=== PATIENT | female | born 1970 | race Caucasian/White ===

== ENCOUNTER 2021-10-23 18:38 | Emergency (ER) | payer OTHER, SELFPAY ==
--- NOTE | 2021-10-23 18:41 | ED.UPPEXIN ---
HPI - Extremity Injury (Upper) General Chief Complaint: Extremity Injury, Upper Stated Complaint: lt shoulder injury Time Seen by Provider: 10/23/21 18:41 Source: patient and RN notes reviewed History of Present Illness HPI narrative: Patient is a 51-year-old female who presents the urgent care with complaints of left shoulder pain after reaching for toilet paper under the cabinet and hearing the shoulder rip . Patient states that she has been taking NSAIDs the pain without much improvement. 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 Patient states that she has noticed increased pain with any type of lifting or repetitive motion. No other acute complaints. No acute distress noted. Patient aware of the plan of care. Some parts of this dictation were generated by voice recognition software and may contain typographical and/or grammatical inaccuracies. Related Data Allergies Allergy/AdvReac Type Severity Reaction Status Date / Time shellfish derived Allergy Unknown VOMITING Unverified 03/23/20 09:27 Clam Allergy Mild Uncoded 03/23/20 09:27 Scallop Allergy Mild Uncoded 03/23/20 09:27 Review of Systems Review of Systems: CONSTITUTIONAL: Denies fever, chills, or sweats. EYES: Denies visual changes, redness, or discharge. ENT: Denies rhinorrhea, congestion, sore throat, or otalgia. CARDIOVASCULAR: Denies chest pain, palpitations, or edema. RESPIRATORY: Denies cough or dyspnea. GASTROINTESTINAL: Denies abdominal pain, nausea, vomiting, or diarrhea. GENITOURINARY: Denies dysuria or hematuria. SKIN: Denies rash or itching. MUSCULOSKELETAL: Reports of left shoulder pain NEUROLOGIC: Denies headache, numbness, or weakness. All other systems reviewed are negative, except as documented in HPI. [facility] Family History Family History (System 03/23/20 @ 09:27 by Lia Talbot) Other Family history of renal cell carcinoma Social History Social History (System 03/23/20 @ 09:27 by Lia Talbot) Smoking status: Never smoker Second hand tobacco smoke exposure: No Alcohol intake: current Comments At the time of my signature, I reviewed and agree with the nursing past medical, surgical, social, and family history. There is no relevant family history pertinent to the patient complaint. Exam Narrative: GENERAL: This is a well-nourished, well-developed patient, in no apparent distress. HEAD: normocephalic, atraumatic. EYES: PERRL. Sclera clear/white. Vision is grossly intact. EARS: External ears normal NOSE: External nose normal with no obvious nasal discharge, nares without redness, no rhinorrhea. THROAT: Mucous membranes moist NECK: Neck supple CARDIOVASCULAR: Regular rate and rhythm without murmurs, gallops, or rubs. RESPIRATORY: Clear to auscultation. Breath sounds equal bilaterally. No wheezes, rales, or rhonchi. SKIN: warm, intact with no suspicious lesions or rash, good texture and turgor. NEURO: awake, alert, and oriented to person, place and time. There were no obvious focal neurologic abnormalities. EXTREMITIES: Range of motion to left shoulder within normal limits with mild exacerbated pain on abduction abduction with flexed arm. Mild anterior joint tenderness. Positive strong left radial pulse and capillary refill less than 2 seconds Course Vital Signs Vital signs: Vital Signs Temperature 99.2 F 10/23/21 18:48 Pulse Rate 97 10/23/21 18:48 Respiratory Rate 16 10/23/21 18:48 Blood Pressure 154/101 H 10/23/21 18:48 Pulse Oximetry 100 10/23/21 18:48 Temperature 99.2 F 10/23/21 18:48 Pulse Rate 97 10/23/21 18:48 Respiratory Rate 16 10/23/21 18:48 Blood Pressure 154/101 H 10/23/21 18:48 Pulse Oximetry 100 10/23/21 18:48 Reviewed-patient is informed that they may have pre-hypertension or hypertension based on a blood pressure reading in the department. I recommend the patient call the primary care provider listed on their disc
[2021-10-23 18:48] VITALS: BP 154/101; PULSE 97; RESP 16; TEMP 37.3; O2SAT 100
== END 2021-10-23 19:01 | disposition home or self-care (01) ==
PROVIDERS: Emergency Provider Nurse Practitioner Family; PCP Family Medicine
DX: S46.912A Strain of unspecified muscle, fascia and tendon at shoulder and upper arm level, left arm, initial encounter (principal); X50.9XXA Other and unspecified overexertion or strenuous movements or postures, initial encounter
CPT/HCPCS: 99203; G0463

== ENCOUNTER 2024-06-05 12:35 | Outpatient (CLI) | payer OTHER, SELFPAY ==
--- NOTE | ~2024-06-05 | CT_ITS ---
EXAMINATION: CT soft tissue neck chest w DATE: 06/05/2024 13:14 INDICATION: Foreign body sensation, throat. TECHNIQUE: Computed tomography (CT) of the neck and chest was performed with 75 mL Omnipaque 350 intr avenous contrast. Automated exposure control and iterative reconstruction technique were employed. Th e dose-length product was 940.96 mGy-cm. COMPARISON: None FINDINGS: CT NECK: There are no pathologically enlarged lymph nodes. The thyroid is enlarged and heterogeneous. The cervical carotid arteries are normal. There is severe cervical spondylosis. CT CHEST: The lungs demonstrate mild emphysema and mild atelectasis. There are multiple nodules in th e lungs with a lower lung predominance measuring up to 2.5 cm in right middle lobe. No pleural effusi on. The heart size is normal. No pericardial effusion. There is severe thoracic spondylosis. There is mild chronic anterior wedging of multiple vertebral bodies. IMPRESSION: 1. Pulmonary nodules measuring up to 2.5 cm. The differential diagnosis includes granulomatous diseas e and metastatic disease. Consider PET/CT. 2. Goiter. Consider thyroid ultrasound for risk stratification. 3. Mild emphysema. Reviewed, dictated and finalized at location A. IMPRESSION: 1. Pulmonary nodules measuring up to 2.5 cm. The differential diagnosis include s granulomatous disease and metastatic disease. Consider PET/CT. 2. Goiter. Consider thyroid ultrasound for risk stratification. 3. Mild emphysema.
== END 2024-06-05 12:36 ==
PROVIDERS: PCP Family Medicine; Visit Provider Physician Assistant Medical
DX: R91.8 Other nonspecific abnormal finding of lung field (principal); J43.9 Emphysema, unspecified
CPT/HCPCS: 70491; 71260; Q9967

== ENCOUNTER 2024-06-10 13:12 | Outpatient (CLI) | payer OTHER, SELFPAY ==
--- NOTE | ~2024-06-10 | US_ITS ---
EXAMINATION: US thyroid DATE: 06/10/2024 13:40 INDICATION: Nontoxic goiter, unspecified. TECHNIQUE: Multiple ultrasound images of the thyroid were obtained. COMPARISON: CT 06/05/2024 FINDINGS: The right thyroid lobe measures 5.6 x 2.5 x 2.4 cm. The left thyroid lobe measures 5.4 x 2.8 x 2.6 c m. In the left lower lobe, there is a 2.3 cm mixed cystic and solid, isoechoic, wider than tall nodu le with ill-defined margin without echogenic foci (TI-RADS TR2). There are multiple subcentimeter mix ed cystic and solid nodules. In the left thyroid lobe, there is a 17 mm mixed cystic and solid, isoec hoic, wider than tall nodule with ill-defined margin without echogenic foci (TR2). IMPRESSION: 1. Thyroid nodules, likely not clinically significant. No follow-up is needed. Reviewed, dictated and finalized at location A.
== END 2024-06-10 13:13 ==
LOC: GOSHIMG 13:13
PROVIDERS: PCP Family Medicine; Visit Provider Family Medicine
DX: E04.2 Nontoxic multinodular goiter (principal)
CPT/HCPCS: 76536

== ENCOUNTER 2024-08-20 10:29 | Outpatient (CLI) | payer OTHER, SELFPAY ==
--- NOTE | ~2024-08-20 | PE_ITS ---
EXAMINATION: PET skull to mid thigh DATE: 08/20/2024 13:28 INDICATION: Other nonspecific abnormal finding of lung field. TECHNIQUE: Blood glucose level was 94 mg/dL. 9.579 mCi of 18-fluorodeoxyglucose (18-FDG) was administ ered i.v. Low dose computed tomography (CT) images were acquired from the base of the brain to the pr oximal thighs for attenuation correction and anatomic localization. Automated exposure control was em ployed. Dose-length product (DLP) was 1321 mGy-cm. Positron emission tomography (PET) images were acq uired in the same distribution. COMPARISON: Chest CT 06/05/2024 FINDINGS: Head/neck: There are no pathologically enlarged lymph nodes. Chest: There is a 2.5 cm nodule in right lung middle lobe with maximum SUV of 2.8. There is a 14 mm n odule in right lung middle lobe without increased activity. There is a 9 mm nodule in right lower lob e without increased activity. There is a 1.9 cm cavitary nodule in left lower lobe without increased activity. There is a 12 mm nodule in left lower lobe without increased activity. No pleural effusion. The heart size is normal. No pericardial effusion. There is a benign bone island in T6 vertebral bod y. Abdomen/pelvis/proximal thighs: The liver is normal. The gallbladder is distended, likely secondary t o fasting. The spleen, pancreas, adrenal glands, and right kidney are normal. There is a 6 mm stone i n left kidney. There are no dilated loops of bowel. The appendix is normal. There are no pathological ly enlarged lymph nodes. There is no free intraperitoneal fluid. There is a benign bone island in L3 vertebral body. IMPRESSION: 1. Multiple pulmonary nodules with mildly increased activity in the largest nodule. These findings ma y be granulomatous disease or less likely metastatic disease. CT-guided biopsy of the 2.5 cm right mi ddle lobe nodule is recommended. Reviewed, dictated and finalized at location A. IMPRESSION: 1. Multiple pulmonary nodules with mildly increased activity in the largest nod ule. These findings may be granulomatous disease or less likely metastatic dise ase. CT-guided biopsy of the 2.5 cm right middle lobe nodule is recommended.
[2024-08-20 11:11] LABS: Glucose Point of Care 94 mg/dl (65-105)
== END 2024-08-20 10:30 | disposition home or self-care (01) ==
LOC: ANHIMG 10:30
PROVIDERS: PCP Family Medicine; Visit Provider Nurse Practitioner Family
DX: R91.1 Solitary pulmonary nodule (principal)
CPT/HCPCS: 78815; A9552

== ENCOUNTER 2024-10-04 11:38 | Emergency (ER) | payer OTHER, SELFPAY ==
--- NOTE | 2024-10-04 11:41 | ED_ITS ---
HPI - URI/Sore Throat General Chief Complaint: Ear Stated Complaint: R EARACHE Time Seen by Provider: 10/04/24 11:40 Source: patient Mode of arrival: ambulatory Limitations: no limitations History of Present Illness HPI Narrative: Lisa is a 54-year-old female patient presenting to the clinic today with complaints of right-sided ear discomfort that started yesterday. She reports she has been taking ibuprofen for her pain. Denies any URI symptoms. Reports when she swallow she is having pain in the ear and to the right side of her throat. Related Data Home Medications Medication Instructions Recorded Confirmed No Home Medications 05/27/24 10/04/24 Allergies Allergy/AdvReac Type Severity Reaction Status Date / Time shellfish derived Allergy Unknown VOMITING Verified 10/04/24 11:55 Clam Allergy Mild Vomiting Uncoded 10/04/24 11:55 Scallop Allergy Mild Vomiting Uncoded 10/04/24 11:55 Review of Systems Review of Systems: Pertinent positives per HPI. Patient denies any fever, chills, rash, headache, visual changes, dizziness, cough, shortness of breath, chest pain, palpitations, nausea, vomiting, diarrhea, constipation, abdominal pain, or any urinary issues. [facility] Family History Family History Grandparent Lung cancer Other Family history of renal cell carcinoma Social History Social History Smoking status: Never smoker Second hand tobacco smoke exposure: No Alcohol intake: never Substance use: never Substance use type: does not use Living arrangements: with family Spiritual care concerns: No Comments At the time of my signature, I reviewed and agree with the nursing past medical, surgical, social, and family history. There is no relevant family history pertinent to the patient complaint. Exam Narrative: General: Well-developed, well nourished, in no apparent distress Head: Normocephalic, atraumatic Eyes: Pupils equally round and reactive to light bilaterally, EOM intact, sclera and conjunctive clear, no discharge, lids normal Ears: TMs intact and clear, ear canals clear, no drainage, grossly hearing normal. Nose: Nares patent, no discharge, no inflammation, no sinus tenderness. Mouth: Oral pharynx red without lesions or masses, good dentition, MMM. Postnasal drip Neck: Supple, trachea midline, no enlargement of anterior or posterior cervical nodes, no thyroid masses or goiter palpable. Cardio: Regular rate and rhythm, s1 and s2 normal, no murmur appreciated. Resp: Clear to auscultation bilaterally, no rhonchi, rales, wheezing or rubs Course Course Emergency Course: Portions of this record may have been created with voice recognition software. Level of Care: Express Care Visit Vital Signs Vital signs: Vital signs reviewed MDM - URI/Sore Throat MDM Narrative Medical decision making narrative: At the time of visit patient is resting comfortably on the exam table. Patient appears to be nontoxic. Plan: I suspect patient has right eustachian tube dysfunction. Supportive measures were discussed with the patient and they voiced understanding discharge instructions and agrees to treatment plan. Return precautions reviewed Differential Diagnosis Differential diagnosis: Likely upper respiratory infection, otitis media, sinusitis, viral infection, bronchitis, influenza, pharyngitis and other (COVID) Discharge Plan Discharge Clinical Impression: Acute dysfunction of right eustachian tube Acute otalgia Qualifiers: Laterality: right Qualified Code(s): H92.01 - Otalgia, right ear Patient Disposition: Home, Self-Care Condition: Stable Instructions: Antibiotic Form, Earache (ED) Additional Instructions: May use Flonase and [id number] antihistamine such as Zyrtec or Claritin May use Afrin nasal spray-do not use more than 2 days consecutively Tylenol/motrin as needed for pain May use heating pad to alleviate pain If you get recurrent ear infections it may be warranted to follow up with ENT. Follow up with your PCP in 3-5 days if symptoms persist. Prescriptions: No Action No Home Medications Follow-up/Referrals: Ashley Miranda MD [Primary Care Provider] - Time of Disposition: 11:56 Quality NIHSS Nursing Documentation ED NIHSS nursing documentation: reviewed/agree
[2024-10-04 11:52] VITALS: BP 153/87; PULSE 75; RESP 16; TEMP 36.7; O2SAT 100
[2024-10-04 11:55] VITALS: BP 153/87; PULSE 75; RESP 16; TEMP 36.7; O2SAT 100
== END 2024-10-04 12:08 | disposition home or self-care (01) ==
PROVIDERS: Emergency Provider Nurse Practitioner Family; PCP Family Medicine
DX: H69.91 Unspecified Eustachian tube disorder, right ear (principal); H92.01 Otalgia, right ear
CPT/HCPCS: 99211; G0463

== ENCOUNTER 2024-10-14 01:27 | Day surgery (SDC) | payer OTHER, SELFPAY ==
[2024-09-23 11:10] VITALS: BMI 38.5
[2024-10-14 09:02] VITALS: BP 148/112; PULSE 83; RESP 20; TEMP 36.6; O2SAT 98
[2024-10-14] MEDS: LACTATED RINGERS 1,000 ML 150 ML IV CONT (09:16)
[2024-10-14 09:25] VITALS: BP 138/72
--- NOTE | 2024-10-14 09:49 | P.PNAN_ITS ---
Anes - Initial Pre Proc Eval Procedure: Operation Date: 10/14/24 10:00 Proposed Procedures p Esophagogastroduodenoscopy&Screen Colon - Gomez Lopez MD Date/Time: 10/14/24 09:49 Surgeon: Gomez Lopez MD Pre Op Diagnosis: Neoplasm Screening/ Dysphagia Patient Data Age: 54 Gender: F Height: 1.88 m Weight: 133.8 kg Last Vital Signs Temp 36.6 C 10/14/24 09:02 Pulse 83 10/14/24 09:02 Resp 20 10/14/24 09:02 BP 148/112 H 10/14/24 09:02 Pulse Ox 98 10/14/24 09:02 O2 Del Method Room Air 10/14/24 09:02 Allergies Allergy/AdvReac Type Severity Reaction Status Date / Time shellfish derived Allergy Unknown VOMITING Verified 10/14/24 08:58 Clam Allergy Mild Vomiting Uncoded 10/14/24 08:58 Scallop Allergy Mild Vomiting Uncoded 10/14/24 08:58 Home Medications ?Medication ?Instructions ?Recorded ?Confirmed ?Type No Home Medications 05/27/24 10/04/24 History Patient hx anesthesia problems: none Family hx anesthesia problems: none Results Review: All pre-operative results and documents have been reviewed as part of the pre- operative evaluation. [facility]LY [facility] Family History Family History Grandparent Lung cancer Other Family history of renal cell carcinoma Social History Social History Smoking status: Never smoker Second hand tobacco smoke exposure: No Alcohol intake: current Substance use: never Substance use type: does not use Living arrangements: with family Spiritual care concerns: No Anes - Eval Final PreProcedure Day of Procedure 10/14/24 09:49 Patient weight: obese Heart: regular rate and rhythm Lungs: clear to auscultation Airway: Mallampati scale class II Neurological: alert and oriented Last oral intake: >/= 8 hours ASA classification: II Emergent: no Anesthetic plan: proceed Anesthesia type and monitoring: general GIVS and standard monitoring Results Review: All pre-operative results and documents have been reviewed as part of the pre- operative evaluation. Informed Consent: The patient's anesthetic plan and its attendant risks and benefits were discussed with the patient/family/POA. Questions were solicited and answers provided to the satisfaction of the patient/family/POA.
--- NOTE | 2024-10-14 10:22 | PM.IMHP ---
H&P: HPI History of Present Illness Date/Time: 10/14/24 10:22 Chief Complaint: Dysphagia and colon cancer screening. Narrative: This patient has been suffering from dysphagia to solids and liquids for the past 6 months. Even her own saliva causes discomfort. There is no history of heartburn, regurgitation, nausea vomiting or unintentional weight loss. In addition, she has been referred for screening colonoscopy which she never had before. Review of Systems Review of Systems: All systems reviewed & are unremarkable except as noted in HPI and below PMFSH Family History Family History Grandparent Lung cancer Other Family history of renal cell carcinoma Social History Social History Smoking status: Never smoker Second hand tobacco smoke exposure: No Alcohol intake: current Substance use: never Substance use type: does not use Living arrangements: with family Spiritual care concerns: No Meds Home Medications and Allergies Home Medications ?Medication ?Instructions ?Recorded ?Confirmed ?Type No Home Medications 05/27/24 10/04/24 History Allergies Allergy/AdvReac Type Severity Reaction Status Date / Time shellfish derived Allergy Unknown VOMITING Verified 10/14/24 08:58 Clam Allergy Mild Vomiting Uncoded 10/14/24 08:58 Scallop Allergy Mild Vomiting Uncoded 10/14/24 08:58 Vital Signs Vital Signs - 24 hr 10/14/24 09:02 10/14/24 09:25 Temperature 97.9 F Pulse Rate 83 Respiratory Rate 20 Blood Pressure 148/112 H 138/72 Pulse Oximetry 98 Oxygen Delivery Room Air Exam Const: General: cooperative and healthy appearing Resp: Effort & Inspection: normal respiratory effort and able to speak in complete sentences Auscultation: clear to auscultation bilaterally Cardio: Rate: regular rate Rhythm: regular rhythm GI: Inspection: normal to inspection GI Palp: No No hepatosplenomegaly present Auscultation: normal bowel sounds Rectal Exam: deferred Skin: General skin exam: normal color Psych: Appearance: grossly normal Mental Status: mental status grossly normal Assessment and Plan Assessment and plan (1) Dysphagia: Code(s): R13.10 - Dysphagia, unspecified Status: Acute Assessment and Plan: The patient is deemed a good candidate for the procedures. Consent signed. Will proceed. (2) Screening for colorectal cancer: Code(s): Z12.11 - Encounter for screening for malignant neoplasm of colon; Z12.12 - Encounter for screening for malignant neoplasm of rectum Status: Acute
--- NOTE | 2024-10-14 10:23 | PM.IMHP ---
H&P: HPI History of Present Illness Date/Time: 10/14/24 10:23 Chief Complaint: Dysphagia- colon cancer screening. Narrative: This patient has been suffering from dysphagia for the past 6 months. She has difficulty swallowing liquids and solids equally. Even her own saliva causes her discomfort. She denies unintentional weight loss, heartburn, regurgitation, nausea or vomiting. In addition, she is also referred for screening colonoscopy which she never had before. Review of Systems Review of Systems: All systems reviewed & are unremarkable except as noted in HPI and below PMFSH Family History Family History Grandparent Lung cancer Other Family history of renal cell carcinoma Social History Social History Smoking status: Never smoker Second hand tobacco smoke exposure: No Alcohol intake: current Substance use: never Substance use type: does not use Living arrangements: with family Spiritual care concerns: No Meds Home Medications and Allergies Home Medications ?Medication ?Instructions ?Recorded ?Confirmed ?Type No Home Medications 05/27/24 10/04/24 History Allergies Allergy/AdvReac Type Severity Reaction Status Date / Time shellfish derived Allergy Unknown VOMITING Verified 10/14/24 08:58 Clam Allergy Mild Vomiting Uncoded 10/14/24 08:58 Scallop Allergy Mild Vomiting Uncoded 10/14/24 08:58 Vital Signs Vital Signs - 24 hr 10/14/24 09:02 10/14/24 09:25 Temperature 97.9 F Pulse Rate 83 Respiratory Rate 20 Blood Pressure 148/112 H 138/72 Pulse Oximetry 98 Oxygen Delivery Room Air Exam Const: General: cooperative and healthy appearing Resp: Effort & Inspection: normal respiratory effort and able to speak in complete sentences Auscultation: clear to auscultation bilaterally Cardio: Rate: regular rate Rhythm: regular rhythm GI: Inspection: normal to inspection GI Palp: No No hepatosplenomegaly present Auscultation: normal bowel sounds Rectal Exam: deferred Skin: General skin exam: normal color Psych: Appearance: grossly normal Mental Status: mental status grossly normal Assessment and Plan Assessment and plan (1) Dysphagia: Code(s): R13.10 - Dysphagia, unspecified Status: Acute Assessment and Plan: The patient is deemed a good candidate for both procedures. Consent signed. Will proceed. (2) Screening for colorectal cancer: Code(s): Z12.11 - Encounter for screening for malignant neoplasm of colon; Z12.12 - Encounter for screening for malignant neoplasm of rectum Status: Acute
[2024-10-14] MEDS: BENZOCAINE (*SP) 60 ML SPRAY CAN (HURRICAINE) 1 SPRAY MUCOUS MEM (10:34)
--- NOTE | 2024-10-14 10:36 | SUR.OPER ---
EGD:[id number] COLON:1054
[2024-10-14 11:23] VITALS: BP 116/71; PULSE 82; RESP 20; O2SAT 99
[2024-10-14 11:33] VITALS: BP 126/80; PULSE 70; RESP 20; O2SAT 100
[2024-10-14 11:43] VITALS: BP 130/73; PULSE 75; RESP 21; O2SAT 100
[2024-10-14 11:59] LABS: BEDSIDEPREGUCG Negative (Negative)
== END 2024-10-14 11:59 | disposition home or self-care (01) ==
PROVIDERS: PCP Family Medicine; Visit Provider Internal Medicine Gastroenterology
PROC: 0DJ08ZZ Inspection of Upper Intestinal Tract, Via Natural or Artificial Opening Endoscopic (ICD-10-PCS; CPT 43235; principal; 2024-10-14 10:00)
DX: Z12.11 Encounter for screening for malignant neoplasm of colon (principal); D12.5 Benign neoplasm of sigmoid colon; D12.2 Benign neoplasm of ascending colon; K57.30 Diverticulosis of large intestine without perforation or abscess without bleeding; K21.00 Gastro-esophageal reflux disease with esophagitis, without bleeding; K44.9 Diaphragmatic hernia without obstruction or gangrene; Z80.51 Family history of malignant neoplasm of kidney; Z80.1 Family history of malignant neoplasm of trachea, bronchus and lung
CPT/HCPCS: 43239; 45385; 88305; J2003; J2704; J7120

== ENCOUNTER 2025-02-10 08:47 | Outpatient (CLI) | payer OTHER, SELFPAY ==
--- NOTE | ~2025-02-10 | CT_ITS ---
CT Scan of the Chest without Contrast: Clinical Indication: Nonspecific abnormal finding of lung field Technique: Contiguous sections were acquired throughout the chest without intravenous contrast. Dose reduction technique was used on this scan by utilizing automated exposure control and iterative recon struction technique. The dose-length product (DLP) was 747.49 mGy-cm. COMPARISON: 06/05/2024 Findings: There is no evidence of any significant mediastinal, hilar or axillary lymphadenopathy. The mediastin al soft tissues appear normal. There is no evidence of pleural or pericardial effusion. Stable nodules in the superior segment left lower lobe measuring 1.2 cm and 0.8 cm (axial images 43, 39). Stable additional 4 mm left lower lobe nodule (axial image 57). Irregular nodule/consolidation t he right middle lobe measures up to approximately 2.7 cm in maximum extent, essentially stable from p rior exam (axial image 67). Stable 8 mm right lower lobe pulmonary nodule (axial image 70). Stable ad ditional focal airspace consolidation/opacity in the right middle lobe (axial image 77). Stable 5 mm fluoroscopy lobe pulmonary nodule (axial image 82). Images through the upper abdomen reveal no abnormalities. Impression: Multiple pulmonary nodules and or areas of consolidation are stable from prior exam, with dominant ir regular lesion in the right middle lobe measuring 2.7 cm in diameter. Reviewed, dictated and finalized at location . Impression: Multiple pulmonary nodules and or areas of consolidation are stable from prior exam, with dominant irregular lesion in the right middle lobe measuring 2.7 cm in diameter.
[2025-02-10 10:01] LABS: Alanine Aminotransferase 30 U/L (6-35); Albumin Level 4.4 g/dL (3.5-5.1); Alkaline Phosphatase 77 U/L (38-126); Anion Gap 9 mmol/L (4-12); Aspartate Amino Transferase 29 U/L (14-36); Bilirubin,Total 0.5 mg/dL (0.2-1.3); Blood Urea Nitrogen 16 mg/dL (7-17); Calcium 9.4 mg/dL (8.4-10.2); Carbon Dioxide 29 mmol/L (22-30); Chloride 104 mmol/L (98-107); Estimated Glomerular Filt Rate > 60; Glucose 107 mg/dL (65-110); Magnesium 1.7 mg/dL (1.6-2.3); Phosphorus 3.7 mg/dL (2.5-4.5); Potassium 4.1 mmol/L (3.4-5.0); Sodium 142 mmol/L (137-145)
[2025-02-10 10:22] LABS: Parathyroid Intact 26.3 pg/mL (14.5-75.2)
[2025-02-10 10:38] LABS: Free T4 Free Thyroxine 1.35 ng/dL (0.78-2.19)
[2025-02-10 10:55] LABS: Vitamin D 25 Hydroxy 28.7 ng/mL
[2025-02-10 11:06] LABS: Thyroid Stimulating Hormone 0.921 uIU/mL (0.465-4.680)
[2025-02-11 13:17] LABS: Ionized Calcium 5.2 mg/dL (4.7-5.5)
== END 2025-02-10 08:48 | disposition home or self-care (01) ==
PROVIDERS: Internal Medicine; Visit Provider Nurse Practitioner Family
DX: E04.1 Nontoxic single thyroid nodule (principal); R13.10 Dysphagia, unspecified; R91.8 Other nonspecific abnormal finding of lung field
CPT/HCPCS: 36415; 71250; 80053; 82306; 82330; 83735; 83970; 84100; 84439; 84443

== ENCOUNTER 2025-02-13 10:07 | Outpatient (CLI) | payer OTHER, SELFPAY ==
[2025-02-13 10:52] LABS: Total Volume 24 Hour Urine 1600 ml
[2025-02-13 10:59] LABS: Creatinine 24 Hour Urine 1.9 gm/24 (0.8-1.8); Creatinine Urine 121.8 mg/dL
== END 2025-02-13 10:08 | disposition home or self-care (01) ==
PROVIDERS: PCP Family Medicine; Visit Provider Internal Medicine
DX: R13.10 Dysphagia, unspecified (principal); E04.1 Nontoxic single thyroid nodule; R91.8 Other nonspecific abnormal finding of lung field; J43.9 Emphysema, unspecified; N20.0 Calculus of kidney
CPT/HCPCS: 81050; 82340; 82570

== ENCOUNTER 2025-02-23 11:02 | Outpatient (CLI) | payer OTHER, SELFPAY ==
--- NOTE | ~2025-02-23 | US_ITS ---
EXAMINATION: US FNA w image guidance DATE: 02/23/2025 12:21 INDICATION: Left thyroid nodules TECHNIQUE: A time-out was performed to verify the patient's name, date of , and procedure to be performed . The procedure and its benefits and risks were discussed with the patient. Risks specifically discus sed included bleeding and infection. [employer] ultrasound of the left thyroid lobe was obtained. The larg est solid nodule in the deep mid inferior left thyroid lobe and the next largest predominantly solid nodule more superficially at the mid left thyroid were chosen for biopsy. The patient understood the risks and agreed to proceed. The neck was prepped and draped in the usual sterile manner. 5 mL 1% li docaine was used for local anesthesia. Attention was first turned to the larger deeper nodule. 5 pas ses were made with a 25G needle into the lesion. Appropriate needle location was documented with con tinuous sonographic guidance. Potential Center into the smaller more superficial nodule. 6 passes wer e made with a 20 5G needle into the lesion. Appropriate needle location was documented with continuou s sonographic guidance. A sterile bandage was applied. There were no immediate complications. FINDINGS: Grayscale ultrasound images demonstrate biopsy needles advanced into a 2.3 cm predominantly solid TI- RADS 5 nodule with an inferior very hypoechoic region with internal echogenic foci. Subsequent images demonstrate the biopsy needle advanced into a more superficial and lateral predominantly solid 1.7 c m mixed hypoechoic/isoechoic nodule in the mid left thyroid. IMPRESSION: 1. Successful ultrasound-guided fine needle aspiration of a 2.3 cm TI-RADS 5 nodule in the deep mid inferior left thyroid lobe. 2. Successful ultrasound-guided fine-needle aspiration of a 1.7 cm Ti RADS 4 nodule in the superficia l and lateral mid left thyroid lobe. Reviewed, dictated and finalized at location A. IMPRESSION: 1. Successful ultrasound-guided fine needle aspiration of a 2.3 cm TI-RADS 5 n odule in the deep mid inferior left thyroid lobe. 2. Successful ultrasound-guided fine-needle aspiration of a 1.7 cm Ti RADS 4 no dule in the superficial and lateral mid left thyroid lobe.
== END 2025-02-23 11:03 | disposition home or self-care (01) ==
PROVIDERS: PCP Family Medicine; Visit Provider Internal Medicine
DX: Z12.11 Encounter for screening for malignant neoplasm of colon (principal); Z12.12 Encounter for screening for malignant neoplasm of rectum; E04.2 Nontoxic multinodular goiter; R13.10 Dysphagia, unspecified; N20.0 Calculus of kidney; R91.8 Other nonspecific abnormal finding of lung field
CPT/HCPCS: 10005; 10006; 88172; 88173; 88177; 88305